=== PATIENT | male | born 1970 | race Caucasian/White ===

== ENCOUNTER 2022-02-08 14:59 | Outpatient (CLI) | payer OTHER, SELFPAY ==
[2022-02-08 14:22] LABS: Cholesterol* 212 mg/dL (90-199); HDL Cholesterol* 48 mg/dL (>=40); LDL Cholesterol Calculated 111 mg/dL (<100); Triglycerides* 267 mg/dL (40-149)
== END 2022-02-08 15:00 | disposition home or self-care (01) ==
PROVIDERS: PCP Family Medicine; Visit Provider Family Medicine
DX: E78.5 Hyperlipidemia, unspecified (principal)
CPT/HCPCS: 80061

== ENCOUNTER 2022-03-01 11:47 | Outpatient (CLI) | payer OTHER, SELFPAY ==
[2022-03-01 14:25] LABS: Chloride* 102 mmol/L (96-114)
[2022-03-01 14:26] LABS: Potassium* 4.6 mmol/L (3.6-5.1); Sodium* 139 mmol/L (135-149)
[2022-03-01 14:28] LABS: Aspartate Amino Transferase* 41 U/L (12-35); Bilirubin Total* 0.8 mg/dL (0.1-1.5); Carbon Dioxide* 30 mmol/L (20-32); Estimated Glomerular Filt Rate 91 ml/min
[2022-03-01 14:29] LABS: Alanine Aminotransferase* 70 U/L (4-50); Alkaline Phosphatase* 73 U/L (40-150); Blood Urea Nitrogen* 15 mg/dL (7-30); Calcium* 9.6 mg/dL (8.4-10.6); Glucose* 95 mg/dL (60-115); Total Protein* 7.5 g/dL (6.0-8.3)
== END 2022-03-01 11:48 | disposition home or self-care (01) ==
PROVIDERS: PCP Family Medicine; Visit Provider Family Medicine
DX: R10.9 Unspecified abdominal pain (principal)
CPT/HCPCS: 80053

== ENCOUNTER 2022-07-27 07:52 | Outpatient (CLI) | payer BC, SELFPAY ==
--- NOTE | 2022-07-27 08:00 | CRLHL7_ITS ---
For Patients: As a result of the Century Cures Act, medical imaging exams and procedure reports are released immediately into your electronic medical record. You may view this report before your referring provider. If you have questions, please contact your health care provider. Indication: ABD PAIN X 4 MONTHS Technique: Noncontrast CT abdomen and pelvis Please note that all CT scans at this facility use dose modulation, iterative reconstruction, and/or weight-based dosing when appropriate to reduce radiation dose to as low as reasonably achievable. Comparison: None Findings: Mild linear scarring within the right lower lobe. No pleural effusion. Diffuse low attenuation of the hepatic parenchyma. The spleen is within normal limits. Normal pancreas. No hiatal hernia. Normal adrenal glands, kidneys, ureters and bladder. Incidental prostate calcifications are present. Sigmoid diverticulosis noted without inflammatory changes. However, there is mild wall thickening of the midsigmoid colon, series 4, slice 69. No adenopathy, free air, free fluid, bowel obstruction or abscess. The appendix is normal. No abdominal wall hernia. Atherosclerotic disease. No aneurysm. Incidental splenules are present. Mild degenerative changes lower lumbar spine. Incidental bone islands in the proximal femurs. Gallbladder nondistended. Impression: Moderate sigmoid diverticulosis. Focal area of wall thickening involving the sigmoid colon which may signify chronic diverticulitis. No acute inflammation. Correlation with colonoscopy recommended. Severe hepatic steatosis. Nondistended gallbladder without biliary obstruction. This may be due to recent meal ingestion. Please note that all CT scans at this facility use dose modulation, iterative reconstruction, and/or weight-based dosing when appropriate to reduce radiation dose to as low as reasonably achievable. Dictated by Alistair Stout MD @ 07/27/2022 3:11:17 PM (Electronically Signed)
--- NOTE | 2022-07-27 08:30 | CRLHL7_ITS ---
For Patients: As a result of the Century Cures Act, medical imaging exams and procedure reports are released immediately into your electronic medical record. You may view this report before your referring provider. If you have questions, please contact your health care provider. INDICATION: Lung cancer screening. History of smoking. High risk patient with greater than 32 pack-year smoking history. TECHNIQUE: Low-dose lung cancer screening non-contrast CT chest. Dose reduction techniques were used. COMPARISON: None. FINDINGS: NODULES: 3.3 millimeter nodule right upper lobe, 3/26. 3 millimeter calcified nodule right middle lobe, 3/109. Noncalcified nodule within the left upper lobe measuring 2.8 millimeters, 3/54. LUNGS AND PLEURA: Mild linear subsegmental scarring is present within the right lower lobe. Mild chronic scarring within the posterior left upper lobe. Mild emphysema may be present. MEDIASTINUM: Normal. CORONARY ARTERY CALCIFICATION: None. LIMITED UPPER ABDOMEN: Incidental splenule is present. There is diffuse low attenuation within the hepatic parenchyma. MUSCULOSKELETAL: Normal. IMPRESSION: Negative for lung cancer screening purposes. LUNG-RADS CATEGORY: 2: Benign. RADIOLOGIST RECOMMENDATION: Continue annual screening with low-dose CT chest in 12 months.? Please note that all CT scans at this facility use dose modulation, iterative reconstruction, and/or weight-based dosing when appropriate to reduce radiation dose to as low as reasonably achievable. Dictated by Alistair Stout MD @ 07/27/2022 3:05:35 PM (Electronically Signed)
== END 2022-07-27 07:53 | disposition home or self-care (01) ==
LOC: CT 07:52
PROVIDERS: PCP Family Medicine; Visit Provider Family Medicine
DX: R10.9 Unspecified abdominal pain (principal); K57.30 Diverticulosis of large intestine without perforation or abscess without bleeding; K76.0 Fatty (change of) liver, not elsewhere classified; Z87.891 Personal history of nicotine dependence
CPT/HCPCS: 71271; 74176

== ENCOUNTER 2023-07-06 10:26 | Outpatient (CLI) | payer BC, SELFPAY ==
[2023-07-06 11:13] LABS: Lab Add On Test New Spec Needed
== END 2023-07-06 10:27 | disposition home or self-care (01) ==
PROVIDERS: PCP Family Medicine; Visit Provider Family Medicine
DX: E78.00 Pure hypercholesterolemia, unspecified (principal); D64.9 Anemia, unspecified; I10 Essential (primary) hypertension; Z80.42 Family history of malignant neoplasm of prostate; Z12.5 Encounter for screening for malignant neoplasm of prostate
CPT/HCPCS: 80053; 80061; G0103

== ENCOUNTER 2023-07-20 13:59 | Outpatient (CLI) | payer BC, SELFPAY ==
--- NOTE | 2023-07-20 14:44 | P.STN_ITS ---
Stress Test Note Date Date Seen: 07/20/23 Date of test: 07/20/23 Providers Primary care provider: Ruy Puri Stress test physician: Jacinda Smith Stress Test Note Stress test ordered: Stress Echo Indication for test: Chest pain Stress test medicine: None Results discussion: Resting EKG: Sinus rhythm, 65 beats per minute. There is some artifact. Resting blood pressure: 134/87 Stress test: Patient has consented on stress test ordered. Standard [facility] protocol is followed for patient with this treadmill exercise stress echo. Patient was able to exercise 10 minutes 2nd it achieving 11.7 Mets. He had a maximum heart rate of 163 beats per minute which was 113% of a calculated target heart rate of 143. He had maximal blood pressure of 180/90 during exercise giving him a rate pressure product of 29,340 using the maximal heart rate of 163. He had mild shortness of breath but was most bothered by his calves being sore and tired. Exercise was terminated due to his calves bothering him. He had no chest pain. There was no arrhythmia, no significant EKG changes. Vane ent recovered nicely. Await echo images to couple this for a full formal diagnostic Impression: Subjectively negative, objectively negative EKG portion of this stress echo. Follow up suggested: Patient discharged in stable condition, asymptomatic. He will await a phone call from his primary clinic regarding stress test results. We have discussed if he is not heard by early next week that he should contact his clinic.
[2023-07-20 14:55] VITALS: BP 165/91; PULSE 92
== END 2023-07-20 14:00 | disposition home or self-care (01) ==
LOC: STRESS 14:00
PROVIDERS: PCP Family Medicine; Visit Provider Family Medicine
DX: R07.9 Chest pain, unspecified (principal)
CPT/HCPCS: 93016; 93325; 93351

== ENCOUNTER 2024-01-18 13:50 | Outpatient (CLI) | payer BC, SELFPAY | END 2024-01-18 13:51 | disposition home or self-care (01) | LOC: LKVREF 13:55 | PROVIDERS: PCP Family Medicine; Visit Provider Family Medicine | DX: R10.11 Right upper quadrant pain (principal); R79.89 Other specified abnormal findings of blood chemistry | CPT/HCPCS: 80053 ==

== ENCOUNTER 2024-02-14 07:10 | Outpatient (CLI) | payer BC, SELFPAY ==
--- NOTE | 2024-02-14 07:15 | CRLHL7_ITS ---
For Patients: As a result of the Century Cures Act, medical imaging exams and procedure reports are released immediately into your electronic medical record. You may view this report before your referring provider. If you have questions, please contact your health care provider. INDICATION: Abdominal pain, flank pain, elevated LFTs COMPARISON: CT 07/27/2022 TECHNIQUE: Real time gibbs scale imaging and color Doppler analysis was performed of the right upper quadrant. FINDINGS: The liver measures 19.0 cm and has a diffusely increased/coarsened echotexture. Focal areas of sparing are noted adjacent to the gallbladder. There is a normal appearance of the hepatic IVC and proximal abdominal aorta. There is no evidence of ascites. The gallbladder is of normal size and there is no evidence of intraluminal stones or sludge. The gallbladder wall measures 2.0 mm in thickness. The common bile duct is of normal size and measures 2.5 mm in diameter at the level of the anisa hepatis. The pancreas is not well visualized. There is no evidence of a stone or hydronephrosis within the right kidney. The right kidney measures 9.7 cm in length. IMPRESSION: Severe hepatic steatosis with focal areas of fatty sparing. Mild hepatomegaly. No ascites. Normal gallbladder. Dictated by Alistair Stout MD @ 02/14/2024 11:05:48 AM (Electronically Signed)
--- NOTE | 2024-02-14 09:00 | CRLHL7_ITS ---
For Patients: As a result of the Cures Act, medical imaging exams and procedure reports are released immediately into your electronic medical record. You may view this report before your referring provider. If you have questions, please contact your health care provider. INDICATION: Lung cancer screening. History of smoking. High risk patient with greater than 32 pack-year smoking history. TECHNIQUE: Low-dose lung cancer screening non-contrast CT chest. Dose reduction techniques were used. COMPARISON: 07/27/2022 FINDINGS: NODULES: Stable tiny nodule right upper lobe. No suspicious nodule. LUNGS AND PLEURA: Emphysema. Mild scarring. MEDIASTINUM: No adenopathy. CORONARY ARTERY CALCIFICATION: None. LIMITED UPPER ABDOMEN: Multiple splenules. Fatty liver. MUSCULOSKELETAL: No fracture. IMPRESSION: Negative for lung cancer screening purposes. LUNG-RADS CATEGORY: 1: Negative. RADIOLOGIST RECOMMENDATION: Continue annual screening with low-dose CT chest in 12 months. Please note that all CT scans at this facility use dose modulation, iterative reconstruction, and/or weight-based dosing when appropriate to reduce radiation dose to as low as reasonably achievable. Dictated by Alistair Stout MD @ 02/14/2024 1:25:18 PM (Electronically Signed)
== END 2024-02-14 07:11 | disposition home or self-care (01) ==
PROVIDERS: PCP Family Medicine; Visit Provider Family Medicine
DX: Z12.2 Encounter for screening for malignant neoplasm of respiratory organs (principal); Z87.891 Personal history of nicotine dependence; R10.9 Unspecified abdominal pain; K76.0 Fatty (change of) liver, not elsewhere classified; R16.0 Hepatomegaly, not elsewhere classified; R79.89 Other specified abnormal findings of blood chemistry
CPT/HCPCS: 71271; 76705